=== PATIENT | female | born 1995 | race Two or more races ===

== ENCOUNTER 2017-09-12 08:16 | Emergency (ER) | payer OTHER ==
[~2017-09-12] VITALS: Ht 165.1 cm; Wt 56.7 kg
[2017-09-12] MEDS ORDERED: PROMETH-CODEIN 65 ML PO (11:24)
[2017-09-12] MEDS ORDERED: MEDROLPACK PO (11:24)
[2017-09-12] MEDS ORDERED: MUCINEX DM ER1 EAC1 PO (11:24)
[2017-09-12] MEDS ORDERED: FLONASE ALLERG9.9 ML NASAL (11:24)
[2017-09-12] MEDS ORDERED: ZITHROMAX500 MG PO (11:24)
[2017-09-12] MEDS ORDERED: VENTOLIN HFA18 GM IH (11:24)
== END 2017-09-12 12:12 | disposition home or self-care (01) ==
LOC: ER 08:16
DX: J06.9 Acute upper respiratory infection, unspecified (principal)